=== PATIENT | female | born 1980 | race Caucasian/White ===

== ENCOUNTER 2017-12-10 11:10 | Outpatient (CLI) | payer OTHER ==
[2017-12-10] MEDS: LACTATED RINGER'S 1,000 ML IV ×2 (14:38→15:53)
== END 2017-12-10 18:52 | disposition home or self-care (01) ==
LOC: OBT 11:10 → L-D 11:10 → OBT 18:52
DX: O41.03X0 Oligohydramnios, third trimester, not applicable or unspecified (principal); O09.523 Supervision of elderly multigravida, third trimester; Z3A.35 35 weeks gestation of pregnancy
CPT/HCPCS: 36415; 76816; 76818; 82962; 96360; 96361

== ENCOUNTER 2017-12-20 18:46 | Outpatient (CLI) | payer OTHER ==
[2017-12-20 20:23] LABS: ADD MAN DIFF? NO
[2017-12-20 20:25] LABS: WHITE BLOOD COUNT 7.8 10^3/ul (4.8-10.8)
[2017-12-20 20:25] LABS: BASOPHILS % 0.3 % (0.0-2.0); EOSINOPHILS # 0.1 10^3/ul (0.0-0.5); EOSINOPHILS % 1.5 % (0.0-7.0); HEMATOCRIT 37.6 % (37.0-47.0); HEMOGLOBIN 12.5 g/dl (12.0-16.0); LYMPHOCYTES # 2.2 10^3/ul (0.8-2.9); LYMPHOCYTES % 28.5 % (15.0-51.0); MEAN CORPUSCULAR HEMOGLOBIN 28.7 pg (29.0-33.0); MEAN CORPUSCULAR HGB CONC 33.2 g/dl (32.0-37.0); MEAN CORPUSCULAR VOLUME 86.2 fl (82.0-101.0); MEAN PLATELET VOLUME 10.6 fl (7.4-10.4); MONOCYTE # 0.6 10^3/ul (0.3-0.9); MONOCYTES % 7.4 % (0.0-11.0); NEUTROPHIL # 4.8 10^3/ul (1.6-7.5); NEUTROPHILS % 61.5 % (39.0-77.0); PLATELET COUNT 243 10^3/UL (140-415); RED BLOOD COUNT 4.36 10^6/ul (4.20-5.40); RED CELL DISTRIBUTION WIDTH 14.2 % (11.5-14.5)
[2017-12-20] MEDS ORDERED: DIPHENOXYLATE/ATROPINE TAB PO (20:30)
[2017-12-20 20:34] LABS: ADD UMIC NO; UR ASCORBIC ACID NEGATIVE (NEGATIVE); UR BILIRUBIN (Dip) NEGATIVE (NEGATIVE); UR BLOOD (Dip) NEGATIVE (NEGATIVE); UR CLARITY CLEAR (CLEAR); UR COLOR COLORLESS (YELLOW); UR GLUCOSE (Dip) NEGATIVE (NEGATIVE); UR KETONES (Dip) NEGATIVE (NEGATIVE); UR LEUKOCYTE ESTERASE (Dip) NEGATIVE Leu/ul (NEGATIVE); UR NITRITE (Dip) NEGATIVE (NEGATIVE); UR SPECIFIC GRAVITY (Dip) 1.001 (1.003-1.030); UR TOTAL PROTEIN (Dip) NEGATIVE (NEGATIVE); UR UROBILINOGEN (Dip) NEGATIVE (NEGATIVE)
[2017-12-20 20:47] LABS: ANION GAP 13 (8-16); BLOOD UREA NITROGEN 10 mg/dl (7-20); CALCIUM 9.1 mg/dl (8.4-10.2); CARBON DIOXIDE 22 mmol/L (21-31); CHLORIDE 108 mmol/L (97-110); CREATININE 0.61 mg/dl (0.44-1.00); GLUCOSE 81 mg/dl (70-220); SODIUM 138 mmol/L (135-144)
[2017-12-20] MEDS: DIPHENOXYLATE/ATROPINE TAB PO (21:07)
[2017-12-20] MEDS: ACETAMINOPHEN 500 MG TAB PO (21:52)
== END 2017-12-20 23:03 | disposition home or self-care (01) ==
LOC: OBT 18:46 → L-D 18:47 → OBT 23:03
DX: O24.419 Gestational diabetes mellitus in pregnancy, unspecified control (principal); O26.893 Other specified pregnancy related conditions, third trimester; K30 Functional dyspepsia; O09.523 Supervision of elderly multigravida, third trimester; Z3A.37 37 weeks gestation of pregnancy
CPT/HCPCS: 80048; 81003; 85025

== ENCOUNTER 2018-01-04 07:12 | Inpatient (IN) | payer OTHER ==
[~2018-01-04 07:12] MED LIST: EPHEDrine SULFATE 50 MG/5 ML SYG; PHENYLephrine (100 MCG/ML) 10ML SYG
[2018-01-04] MEDS ORDERED: MISOPROSTOL 200 MCG TAB PR ×2 (08:00→16:30)
[2018-01-04] MEDS ORDERED: METHYLERGONOVINE 0.2 MG INJ IM ×2 (08:00→16:30)
[2018-01-04] MEDS ORDERED: CARBOPROST 250 MCG INJ IM ×2 (08:00→16:30)
[2018-01-04] MEDS ORDERED: OXYTOCIN 30 UNITS/LR 500 ML IV ×3 (08:00→16:30)
[2018-01-04 08:30] LABS: ADD MAN DIFF? NO
[2018-01-04 08:34] LABS: BASOPHILS % 0.2 % (0.0-2.0); EOSINOPHILS # 0.1 10^3/ul (0.0-0.5); EOSINOPHILS % 1.1 % (0.0-7.0); HEMOGLOBIN 13.3 g/dl (12.0-16.0); LYMPHOCYTES # 2.3 10^3/ul (0.8-2.9); LYMPHOCYTES % 28.6 % (15.0-51.0); MEAN CORPUSCULAR HEMOGLOBIN 29.3 pg (29.0-33.0); MEAN CORPUSCULAR HGB CONC 34.1 g/dl (32.0-37.0); MEAN CORPUSCULAR VOLUME 85.9 fl (82.0-101.0); MEAN PLATELET VOLUME 11.6 fl (7.4-10.4); MONOCYTE # 0.6 10^3/ul (0.3-0.9); MONOCYTES % 7.5 % (0.0-11.0); NEUTROPHILS % 62.1 % (39.0-77.0); PLATELET COUNT 222 10^3/UL (140-415); RED BLOOD COUNT 4.54 10^6/ul (4.20-5.40); RED CELL DISTRIBUTION WIDTH 14.5 % (11.5-14.5)
[2018-01-04 08:34] LABS: WHITE BLOOD COUNT 8.1 10^3/ul (4.8-10.8)
[2018-01-04] MEDS: LACTATED RINGER'S 1,000 ML IV ×3 (08:35→16:01)
[2018-01-04 08:54] LABS: INR 0.89; PARTIAL THROMBOPLASTIN TIME 30.3 Sec (25.0-35.0); PROTIME 12.1 Sec (11.9-14.9); PT RATIO 0.9
[2018-01-04] MEDS: CITRIC ACID/SODIUM CITRATE 15 ML CUP PO (09:22)
[2018-01-04 09:25] LABS: GLUCOSE 85 mg/dl (70-220)
[2018-01-04 09:26] LABS: HEPATITIS B SURFACE ANTIGEN NEGATIVE (NEGATIVE)
[2018-01-04] MEDS ORDERED: ONDANSETRON 4 MG INJ (11:14)
[2018-01-04] MEDS ORDERED: METOCLOPRAMIDE 10 MG INJ (11:14)
[2018-01-04] MEDS ORDERED: morphine SULFATE/PF (10 MG/10 ML) INJ (11:14)
[2018-01-04] MEDS ORDERED: BUPIVACAINE 0.75%/DEXT (SPINAL) 2 ML INJ (11:14)
[2018-01-04] MEDS ORDERED: KETOROLAC 30 MG INJ (11:14)
[2018-01-04] MEDS: CEFAZOLIN 2 GM/50 ML (PMX) 50 ML IV (12:16)
[2018-01-04] MEDS ORDERED: FENTAnyl 50 MCG/ML VIAL (12:17)
[2018-01-04] MEDS: OXYTOCIN 30 UNITS/LR 500 ML IV ×5 (12:59→23:21)
[2018-01-04] MEDS: KETOROLAC 30 MG INJ IV ×2 (15:22→22:15)
[2018-01-04] MEDS ORDERED: NALOXONE (0.4 MG/ML) INJ IV (15:30)
[2018-01-04] MEDS ORDERED: ONDANSETRON 4 MG INJ IV ×2 (15:30)
[2018-01-04] MEDS ORDERED: morphine (1 MG/ML) 10ML SYRINGE IV ×3 (15:30)
[2018-01-04] MEDS ORDERED: morphine 2 MG INJ IV ×3 (15:30)
[2018-01-04] MEDS ORDERED: CEFAZOLIN 1 GM/50 ML (PMX) 50 ML IVPB (16:30)
[2018-01-04] MEDS ORDERED: OXYCODONE/ACETAMINOPHEN (5/325) TAB PO ×2 (16:30)
[2018-01-04] MEDS ORDERED: METHYLERGONOVINE 0.2 MG TAB PO (16:30)
[2018-01-04] MEDS: IBUPROFEN 600 MG TAB PO (18:00)
[2018-01-04] MEDS: CEFAZOLIN 1 GM/50 ML (PMX) 50 ML IVPB (20:00)
[2018-01-04] MEDS: DIPHENHYDRAMINE 50 MG INJ IV (20:46)
[2018-01-04] MEDS: SENNA/DOCUSATE NA (8.6MG/50MG) TAB PO (21:00)
[2018-01-04 21:40] LABS: RAPID PLASMA REAGIN NONREACTIVE (NR)
[2018-01-05] MEDS: LACTATED RINGER'S 1,000 ML IV ×2 (02:51→08:01)
[2018-01-05] MEDS: KETOROLAC 30 MG INJ IV ×2 (03:52→11:33)
[2018-01-05] MEDS: OXYTOCIN 30 UNITS/LR 500 ML IV (04:01)
[2018-01-05] MEDS: IBUPROFEN 600 MG TAB PO ×5 (06:00→23:31)
[2018-01-05] MEDS: SENNA/DOCUSATE NA (8.6MG/50MG) TAB PO ×2 (08:57→21:42)
[2018-01-05 09:32] LABS: ADD MAN DIFF? NO
[2018-01-05 09:38] LABS: BASOPHILS % 0.2 % (0.0-2.0); EOSINOPHILS # 0.1 10^3/ul (0.0-0.5); EOSINOPHILS % 0.6 % (0.0-7.0); HEMOGLOBIN 10.4 g/dl (12.0-16.0); LYMPHOCYTES # 1.2 10^3/ul (0.8-2.9); LYMPHOCYTES % 13.8 % (15.0-51.0); MEAN CORPUSCULAR HEMOGLOBIN 29.5 pg (29.0-33.0); MEAN CORPUSCULAR HGB CONC 34.7 g/dl (32.0-37.0); MEAN PLATELET VOLUME 11.5 fl (7.4-10.4); MONOCYTE # 0.5 10^3/ul (0.3-0.9); MONOCYTES % 5.8 % (0.0-11.0); NEUTROPHIL # 7.1 10^3/ul (1.6-7.5); NEUTROPHILS % 79.2 % (39.0-77.0); PLATELET COUNT 169 10^3/UL (140-415); RED BLOOD COUNT 3.53 10^6/ul (4.20-5.40); RED CELL DISTRIBUTION WIDTH 14.2 % (11.5-14.5)
[2018-01-05] MEDS: HYDROCODONE/APAP (5/325) TAB PO (19:50)
[2018-01-06] MEDS: IBUPROFEN 600 MG TAB PO ×4 (05:40→23:40)
[2018-01-06] MEDS: SENNA/DOCUSATE NA (8.6MG/50MG) TAB PO ×2 (09:12→20:50)
[2018-01-06] MEDS: NA PHOSPHATE/BIPHOS 133 ML ENEMA PR (10:10)
[2018-01-06] MEDS: HYDROCODONE/APAP (5/325) TAB PO ×2 (13:32→20:50)
[2018-01-06] MEDS: LANOLIN 7 GM TUBE TOP (20:50)
[2018-01-07] MEDS: IBUPROFEN 600 MG TAB PO ×2 (05:34→11:40)
[2018-01-07] MEDS ORDERED: DIPHTH/TET/ACEL PERTUSS (ADULT) 0.5 ML VIAL IM* (09:00)
[2018-01-07] MEDS: SENNA/DOCUSATE NA (8.6MG/50MG) TAB PO (09:15)
== END 2018-01-07 14:40 | disposition home or self-care (01) | DRG 766 ==
LOC: L-D 07:12 → PP1 15:48
PROVIDERS: Obstetrics & Gynecology
PROC: 10D00Z1 Extraction of Products of Conception, Low, Open Approach (ICD-10-PCS; principal; 2018-01-04)
PROC: 0UB70ZZ Excision of Bilateral Fallopian Tubes, Open Approach (ICD-10-PCS; 2018-01-04)
DX: O34.211 Maternal care for low transverse scar from previous cesarean delivery (principal); Z3A.39 39 weeks gestation of pregnancy; Z37.0 Single live birth; Z30.2 Encounter for sterilization
CPT/HCPCS: 82947; 82962; 85025; 85610; 85730; 86592; 86850; 86900; 86901; 87340; 88302; 99464

== ENCOUNTER 2018-01-09 13:23 | Emergency (ER) | payer OTHER | END 2018-01-09 14:54 | disposition home or self-care (01) | LOC: FTE 13:23 | DX: O99.73 Diseases of the skin and subcutaneous tissue complicating the puerperium (principal); L73.9 Follicular disorder, unspecified | CPT/HCPCS: 99283; Z7502 ==